=== PATIENT | male | born 1995 | race Caucasian/White ===

== ENCOUNTER 2021-08-01 10:32 | Emergency (ER) | payer SELFPAY ==
[~2021-08-01] VITALS: Ht 182.9 cm; Wt 81.0 kg
[~2021-08-01 10:32] MED LIST: ARIP10TA9 PO; AZIT250T6 PO; BENZ100C PO; HYDR-3165 PO; INSU100I13 SQ; INSU100I17 SQ; INSU100V8 SQ; ONDA4TAB10 PO; ONDA4TAB10 SL
--- NOTE | 2021-08-01 11:12 | PHYS DOC ---
Past History Past Medical History: Asthma, Diabetes (KHURRAM COY DO) Past Surgical History: No Surgical History (KHURRAM COY DO) Smoking: Cigarettes Alcohol Use: None Drug Use: None (KHURRAM COY DO) Adult General Chief Complaint Chief Complaint: HYPERGLYCEMIA HPI HPI Patient is a 25-year-old male presenting for nausea and vomit. Admits he has history of type 1 diabetes and was diagnosed approximately 6 years ago at our facility. He has been noncompliant with his medication regiment and reports completely running out of insulin approximately 24 hours ago. He has poor outpatient follow-up and has not seen a primary care doctor in 2 years. He does not check his fingerstick glucose at home and is on a sporadic dose of insulin. Nonetheless, patient presents with cough that is nonproductive, nausea, numerous episodes of nonbloody nonbilious emesis and is craving water. He reports he had similar feelings in the past when he was in DKA. Denies any other significant medical issues, is not vaccinated against COVID-19 (KHURRAM COY DO) Review of Systems Review of Systems Fourteen body systems of review of systems have been reviewed. See HPI for pertinent positives and negative responses, other guzman all other systems are negative, non-pertinent or non-contributory (KHURRAM COY DO) Allergies Allergies Allergies Coded Allergies Type Severity Reaction Last Updated Verified No Known Drug Allergies 10/29/15 No (KHURRAM COY DO) Physical Exam Physical Exam Constitutional: Well developed, well nourished, no acute distress, non-toxic appearance. HENT: Normocephalic, atraumatic, bilateral external ears normal, oropharynx moist, no oral exudates, nose normal. Eyes: PERRLA, EOMI, conjunctiva normal, no discharge. Neck: Normal range of motion, no tenderness, supple, no stridor. Cardiovascular: Heart rate regular, sinus rhythm, no murmurs rubs or gallops Lungs & Thorax: Bilateral breath sounds clear to auscultation Abdomen: Bowel sounds normal, soft, no tenderness, no masses, no pulsatile masses. Nonsurgical abdomen, no peritoneal signs Skin: Warm, dry, no erythema, no rash. Back: No tenderness, no CVA tenderness. Extremities: No tenderness, no cyanosis, no clubbing, ROM intact, no edema. Neurologic: Alert and oriented X 3, grossly normal motor & sensory function, no focal deficits noted. Psychologic: Affect normal, judgement normal, mood normal. (KHURRAM COY DO) Current Patient Data Vital Signs Vital Signs Date Time Temp Pulse Resp B/P (MAP) Pulse Ox O2 Delivery O2 Flow Rate FiO2 08/01/21 12:04 98.2 92 16 110/73 (85) 99 Vital Signs Date Time Temp Pulse Resp B/P (MAP) Pulse Ox O2 Delivery O2 Flow Rate FiO2 08/01/21 15:56 74 16 90/53 (65) 100 08/01/21 12:04 98.2 Lab Results Laboratory Tests Test 08/01/21 10:53 08/01/21 11:13 08/01/21 11:15 08/01/21 11:24 Glucose (Fingerstick) 591 mg/dL White Blood Count 8.4 x10^3/uL Red Blood Count 5.17 x10^6/uL Hemoglobin 16.5 g/dL Hematocrit 48.3 % Mean Corpuscular Volume 93 fL Mean Corpuscular Hemoglobin 32 pg Mean Corpuscular Hemoglobin Concent 34 g/dL Red Cell Distribution Width 12.8 % Platelet Count 386 x10^3/uL Neutrophils (%) (Auto) 75 % Lymphocytes (%) (Auto) 19 % Monocytes (%) (Auto) 5 % Eosinophils (%) (Auto) 1 % Basophils (%) (Auto) 0 % Neutrophils # (Auto) 6.3 x10^3uL Lymphocytes # (Auto) 1.6 x10^3/uL Monocytes # (Auto) 0.4 x10^3/uL Eosinophils # (Auto) 0.1 x10^3/uL Basophils # (Auto) 0.0 x10^3/uL Sodium Level 130 mmol/L Potassium Level 4.7 mmol/L Chloride Level 91 mmol/L Carbon Dioxide Level 15 mmol/L Anion Gap 24 Blood Urea Nitrogen 24 mg/dL Creatinine 1.3 mg/dL Estimated GFR (Cockcroft-Gault) 67.8 BUN/Creatinine Ratio 18 Glucose Level 583 mg/dL Calcium Level 9.1 mg/dL Total Bilirubin 0.9 mg/dL Aspartate Amino Transf (AST/SGOT) 52 U/L Alanine Aminotransferase (ALT/SGPT) 44 U/L Alkaline Phosphatase 111 U/L Total Protein 7.7 g/dL Albumin 3.8 g/dL Albumin/Globulin Ratio 1.0 Acetone Level Sm pos Bedside Venous pH 7.30 Bedside Venous pCO2 36 mmHg Bedside Venous pO2 26 mmHg Venous Blood HCO3 17 mmol/L POC Venous O2 Saturation ([place]man) 42 % Bedside FiO2 21 Influenza Type A (Rapid) Negative Influenza Type B (Rapid) Negative SARS-CoV-2 Antigen (Rapid) Positive Test 08/01/21 11:56 08/01/21 14:46 08/01/21 15:00 08/01/21 15:49 Urine Collection Type Unknown Urine Color Yellow Urine Clarity Clear Urine pH 5.5 Urine Specific [place] 1.020 Urine Protein Neg Urine Glucose (UA) 500 mg/dL Urine Ketones (Stick) >=160 mg/dL Urine Blood Neg Urine Nitrite Neg Urine Bilirubin Neg Urine Urobilinogen Dipstick 0.2 mg/dL Urine Leukocyte Esterase Neg Urine RBC 0 /HPF Urine WBC 0 /HPF Urine Squamous Epithelial Cells Few /LPF Urine Bacteria 0 /HPF Glucose (Fingerstick) 406 mg/dL 254 mg/dL Sodium Level 133 mmol/L Potassium Level 4.4 mmol/L Chloride Level 97 mmol/L Carbon Dioxide Level 16 mmol/L Anion Gap 20 Blood Urea Nitrogen 25 mg/dL Creatinine 1.2 mg/dL Estimated GFR (Cockcroft-Gault) 74.4 Glucose Level 322 mg/dL Calcium Level 8.4 mg/dL Current Medications Medications (Trade) Dose Ordered Sig/Matheus Route PRN Reason Start Time Stop Time Status Last Admin Dose Admin Sodium Chloride 1,000 ml @ 1,000 mls/hr 1X ONCE IV 08/01/21 11:15 08/01/21 12:14 DC 08/01/21 11:15 Ondansetron HCl (Zofran) 4 mg STK-MED ONCE .ROUTE 08/01/21 12:31 08/01/21 12:32 DC Insulin Human Regular (HumuLIN R VIAL) 8 unit 1X ONCE IV 08/01/21 12:45 08/01/21 12:58 DC 08/01/21 13:08 Potassium Chloride/Sodium Chloride 1,000 ml @ 200 mls/hr 1X ONCE IV 08/01/21 12:45 08/01/21 17:44 08/01/21 13:41 Dextrose (Dextrose 50%-Water Syringe) 12.5 gm PRN Q15MIN PRN IV SEE COMMENTS 08/01/21 13:00 Insulin Human Regular 100 unit/ Sodium Chloride 101 ml @ 0 mls/hr CONT PRN IV SEE I/O RECORD 08/01/21 13:00 08/01/21 13:46 (KHURRAM COY DO) EKG EKG [] (KHURRAM COY DO) Radiology/Procedures Radiology/Procedures EXAM: CHEST 1 VIEW History: Cough COMPARISON: 10/29/2015. TECHNIQUE: Single portable radiograph of the chest FINDINGS: The cardiac silhouette is unremarkable. The lungs are clear bilaterally. The costophrenic sulci are clear and well demarcated. IMPRESSION: No radiographic evidence of an acute cardiopulmonary process. Electronically signed by: Alonso Harrison MD (08/01/2021 11:31 AM) [id number] (KHURRAM COY DO) Heart Score C/O Chest Pain: No Risk Factors: Risk Factors: DM, Current or recent (<one month) smoker, HTN, HLP, family history of CAD, obesity. Risk Scores: Risk Factors: DM, Current or recent (<one month) smoker, HTN, HLP, family history of CAD, obesity. (KHURRAM COY DO) Course & Med Decision Making Course & Med Decision Making ABCs unremarkable HPI physical exam and comprehensive ER work-up concerning for mild DKA in the setting of COVID-19 infection in an unvaccinated individual Appropriate IV fluid, insulin bolus and subsequent insulin drip started Regarding patient's symptoms for COVID-19, he admits cough only. Unsure if nausea and vomit is related to DKA versus COVID-19 infection or both. States he has been feeling physically healthy and has been going to the gym daily I contacted hospitalist and discussed need for admission, Dr. Jim accepted patient but at present time given that he is requiring an insulin drip, he cannot be admitted to [facility] due to no ICU capacity Patient still on insulin drip with improving anion gap at time of my shift and pending hospital admission. Comprehensive signout given to oncoming ER physician. Please defer to Dr. Muniz's documentation regarding future care in ER setting Critical Care Time This patient required critical care. Due to the fact that the patient required a significant amount of one on one physician - patient contact time, ordering and review of studies, arranging urgent treatment with development of a management plan, evaluation of patients response to treatment with frequent reassessments, and discussions with other providers this patient required 40 minutes of critical care time. Critical care time was indicated due to the inherent instability and/or potential for instability in this patient. The critical care time that is allocated to this patient is above and beyond any time spent on any other billable procedures performed on this patient. (KHURRAM COY DO) Course & Med Decision Making Patient care transferred to dc at checkout pending laboratory analysis for soft DKA. Patient alert and oriented in no acute distress. Taking p.o. whole food easily. Given home dose of Novolin. IV insulin discontinued. Vital signs norm al. Patient asymptomatic. Last glucose 150. Anion gap closed. pH normal. Bicarb normal. Discussed all findings with patient. Patient has insulin at home. Advised to get it tonight and take as directed. Advised on diet. Advised on blood glucose monitoring. Advised to follow-up in the morning with primary care physician to update on ED visit and set up an immediate follow-up visit. Advised to come back with new or concerning symptoms. Patient grateful, verbalized understanding and agreed with plan of discharge. (JENI MUNIZ MD) Dragon Disclaimer Dragon Disclaimer This electronic medical record was generated, in whole or in part, using a voice recognition dictation system. (KHURRAM COY DO) Departure Departure: Impression: Primary Impression: Diabetic ketoacidosis associated with type 1 diabetes mellitus Additional Impression: COVID-19 Disposition: 01 HOME / SELF CARE / HOMELESS Admitting Physician: Ky Jim (KHURRAM COY DO) Condition: IMPROVED Referrals: PCP,DANA (PCP) FELIPE JAY MD Patient Instructions: Diabetic Ketoacidosis, Hyperglycemia Additional Instructions: Thank you for coming into the emergency department tonight and allowing us to take care of you. Please read the attached information carefully to go over things we discussed. Please check your blood sugar multiple times a day. Please take your short acting as prescribed. Please take your long-acting as prescribed. Please call your primary care physician in the morning to update on your ED visit and set up an immediate follow-up. If you do not have a primary care physician you can call the 1 at the number provided or the free clinics and the resources. If you do not take your insulin this could cause serious illness and you will end up back in the hospital. Please come back with new or concerning symptoms as we discussed. Problem Qualifiers KHURRAM COY DO Aug 01, 2021 11:12 JENI MUNIZ MD Aug 01, 2021 20:50
[2021-08-01] MEDS ORDERED: IV NORMAL SALINE 1,000ML 1,000 ML IV ONE (11:15)
--- NOTE | 2021-08-01 11:33 | RAD ---
EXAM: CHEST 1 VIEW History: Cough COMPARISON: 10/29/2015. TECHNIQUE: Single portable radiograph of the chest FINDINGS: The cardiac silhouette is unremarkable. The lungs are clear bilaterally. The costophrenic sulci are clear and well demarcated. IMPRESSION: No radiographic evidence of an acute cardiopulmonary process. Electronically signed by: Alonso Harrison MD (08/01/2021 11:31 AM) [id number]
[2021-08-01 12:04] LABS: BASO % 0 % (0-3); EOS # 0.1 x10^3/uL (0.0-0.7); EOS % 1 % (0-3); HEMATOCRIT 48.3 % (39.0-53.0); HEMOGLOBIN 16.5 g/dL (13.0-17.5); LYMPH # 1.6 x10^3/uL (1.0-4.8); LYMPH % 19 % (24-48); MEAN CORPUSCULAR HEMOGLOBIN 32 pg (25-35); MEAN CORPUSCULAR HGB CONC 34 g/dL (31-37); MEAN CORPUSCULAR VOLUME 93 fL (79-100); MONO # 0.4 x10^3/uL (0.0-1.1); MONO % 5 % (0-9); NEUT # 6.3 x10^3uL (1.8-7.7); NEUT % 75 % (31-73); PLATELET COUNT 386 x10^3/uL (140-400); RED BLOOD COUNT 5.17 x10^6/uL (4.30-5.70); RED CELL DISTRIBUTION WIDTH 12.8 % (11.5-14.5); WHITE BLOOD COUNT 8.4 x10^3/uL (4.0-11.0)
[2021-08-01 12:08] LABS: INFLUENZA A PATIENT NEGATIVE (NEGATIVE); INFLUENZA B PATIENT NEGATIVE (NEGATIVE)
[2021-08-01 12:12] LABS: ALBUMIN 3.8 g/dL (3.4-5.0); CALCIUM 9.1 mg/dL (8.5-10.1); CREATININE 1.3 mg/dL (0.7-1.3); GFR 67.8; POTASSIUM 4.7 mmol/L (3.5-5.1); TOTAL BILIRUBIN 0.9 mg/dL (0.2-1.0); TOTAL PROTEIN 7.7 g/dL (6.4-8.2)
[2021-08-01] MEDS ORDERED: ONDANSETRON PF 4 MG/2 ML VIAL. ONE (12:31)
[2021-08-01] MEDS ORDERED: POTASSIUM CL 20MEQ-0.45% NACL 1,000 ML IV ONE (12:45)
[2021-08-01] MEDS ORDERED: INSULIN REGULAR 100 UNIT/ML 3ML VIAL. IV ONE (12:45)
[2021-08-01 12:51] LABS: BACTERIA,URINE 0 /HPF (0-FEW); BILIRUBIN,URINE NEG (NEG); CLARITY,URINE CLEAR; COLOR,URINE YELLOW; GLUCOSE,URINE 500 mg/dL (NEG); NITRITE,URINE NEG (NEG); RBC,URINE 0 /HPF (0-2); SQUAMOUS EPITHELIAL CELL,UR FEW /LPF; UROBILINOGEN,URINE 0.2 mg/dL (0.2 mg/dL); WBC,URINE 0 /HPF (0-4)
[2021-08-01] MEDS ORDERED: INSULIN REGULAR VIAL 100 UNIT in IV NORMAL SALINE 100ML 100 ML IV PRN (13:00)
[2021-08-01] MEDS ORDERED: DEXTROSE 50% 25 GM / 50ML DISP.SYRIN. IV PRN (13:00)
[2021-08-01] MEDS ORDERED: ACETAMINOPHEN 325 MG TABLET PO PRN (15:00)
[2021-08-01] MEDS ORDERED: NITROGLYCERIN SUBLINGUAL 0.4 MG BOTTLE OF 25. SL PRN (15:00)
[2021-08-01 15:48] LABS: CALCIUM 8.4 mg/dL (8.5-10.1); CREATININE 1.2 mg/dL (0.7-1.3); GFR 74.4; POTASSIUM 4.4 mmol/L (3.5-5.1)
[2021-08-01] MEDS ORDERED: POTASSIUM CL 20MEQ D5-0.45NACL 1,000 ML IV SCH (16:00)
[2021-08-01] MEDS ORDERED: IV DEXTROSE 5%-LACT RINGERS 1,000 ML IV ONE (20:15)
[2021-08-01 20:27] LABS: CALCIUM 7.6 mg/dL (8.5-10.1); GFR 91.8; POTASSIUM 3.7 mmol/L (3.5-5.1)
[2021-08-01 20:59] VITALS: BP 110/53
[2021-08-02] MEDS ORDERED: INSULIN NPH/REG HUM 70/30 300 UNITS/3 ML VIAL. SQ SCH (08:00)
[2021-08-02] MEDS ORDERED: INSULIN LISPRO 300 UNITS/3 ML VIAL. SQ SCH (08:00)
== END 2021-08-01 21:05 | disposition home or self-care (01) ==
LOC: ER 10:32 → ER HOLD 14:59 → UNDOADMIN 14:59
DX: U07.1 COVID-19 (principal); E10.10 Type 1 diabetes mellitus with ketoacidosis without coma; J45.909 Unspecified asthma, uncomplicated; F17.210 Nicotine dependence, cigarettes, uncomplicated
CPT/HCPCS: 36415; 71045; 80048; 80053; 81001; 82010; 82803; 82947; 85025; 87428; 96360; 96361; 96365; 96366; 96372; 96376; 99291; J1815; J7030; 96367; 99285-25